=== PATIENT | female | born 1980 | race Caucasian/White ===

== ENCOUNTER → 2022-02-17 | Outpatient (CLI) | payer BC ==
[~2022-02-17] MED LIST: BUPR150T2 PO; CIPR500 PO; CIPRO500 MG PO; DIAZ2 PO; Diflucan100 MG PO; FLUO20; HYDACE5 PO; IBUP800 PO; IBUPROFEN; LORA1 PO; OMEP20ER; OXYACE5T PO; PHENA200 PO; PROM25 PO; RXHYDMOR2 PO; SULTRIDS PO; [UNRECOGNIZED DRUG - REMARK]
[2022-02-24 11:11] LABS: HPV 16 Negative (Negative); HPV 18 Negative (Negative); HPV OTHER HR TYPES Negative (Negative)
== END | disposition home or self-care (01) ==
LOC: LAB SHORT 09:01 → LAB 09:01
PROVIDERS: Student in an Organized Health Care Education/Training Program
DX: Z12.4 Encounter for screening for malignant neoplasm of cervix (principal)
CPT/HCPCS: 87624; G0145

== ENCOUNTER 2023-04-04 07:11 | Day surgery (SDC) | payer BC ==
[2023-04-04] VITALS (15 sets, daily range): BP systolic 120–154; BP diastolic 46–101
[~2023-04-04] VITALS: Ht 172.7 cm; Wt 104.1 kg
[2023-04-04] MEDS ORDERED: ALBU90OI INH (07:41)
--- NOTE | 2023-04-04 07:57 | NUR ---
History, Chart, Medications and Allergies reviewed before start of procedure. Lungs clear T/O to Auscultation. Patient confirms NPO status and agrees with scheduled surgery. Pre-Op teaching done. Pt verbalizes understanding. Patient reports completing Chlorhexadine shower X2 prior to admission to hospital.
--- NOTE | 2023-04-04 12:00 | NUR ---
ARRIVAL TO UNIT ABLE TO STAND FROM URNEY & AMBULATE TO BATHROOM. SMALL VOID. SAÚL PAD & UNDERWEAR PLACED. TO BED. ALERT & ORIENTED. DENIES N/V. SNACKS & WATER GIVEN. ABD SOFT w/ 4 LAP SITES COVERED w/ WOUND GLUE.
--- NOTE | 2023-04-04 15:10 | NUR ---
DISCHARGE PAIN WELL CONTROLLED. EATING, DRINKING, & VOIDING WELL. VSS. NO VAG BLEEDING. SAÚL PADS SENT HOME. ESCORTED OUT VIA W/C.
== END 2023-04-04 15:10 | disposition home or self-care (01) ==
LOC: ORSCMMR 07:11 → ORD 07:30 → ORSCMMR 07:30 → ORD 08:30 → SURS 11:53 → ORSCMMR 15:10
PROVIDERS: Obstetrics & Gynecology
PROC: 0DNU4ZZ Release Omentum, Percutaneous Endoscopic Approach (ICD-10-PCS; principal; 2023-04-04 08:30)
PROC: 0UT9FZZ Resection of Uterus, Via Natural or Artificial Opening With Percutaneous Endoscopic Assistance (ICD-10-PCS; principal; 2023-04-04 08:30)
DX: N93.9 Abnormal uterine and vaginal bleeding, unspecified (principal); N92.0 Excessive and frequent menstruation with regular cycle; N73.6 Female pelvic peritoneal adhesions (postinfective); E11.9 Type 2 diabetes mellitus without complications; F17.210 Nicotine dependence, cigarettes, uncomplicated; E66.9 Obesity, unspecified; Z68.34 Body mass index [BMI] 34.0-34.9, adult; D69.6 Thrombocytopenia, unspecified; Z79.899 Other long term (current) drug therapy
CPT/HCPCS: 58570; 49329; S2900; 36415; 82947; 86850; 86900; 86901; 88307; A9270; J0690; J1100; J1885; J2405; J2704; J3010; J7120

== ENCOUNTER → 2023-06-24 | Outpatient (CLI) | payer OTHER ==
[~2023-06-24] MED LIST changes: +ALBU90OI INH
[2023-06-25 10:56] LABS: Candida species (DNA Probe) Negative (NEGATIVE); G. vaginalis (DNA Probe) Negative (NEGATIVE); T. vaginalis (DNA Probe) Negative (NEGATIVE)
== END | disposition home or self-care (01) ==
LOC: LAB SHORT 18:02 → LAB 18:02
PROVIDERS: Obstetrics & Gynecology
DX: N89.8 Other specified noninflammatory disorders of vagina (principal)
CPT/HCPCS: 87480; 87510; 87660

== ENCOUNTER → 2024-07-16 | Outpatient (CLI) | payer OTHER | LOC: LAB SHORT 08:02 → LAB 08:02 | DX: B35.1 Tinea unguium (principal); L60.2 Onychogryphosis | CPT/HCPCS: 88305; 88312 ==